=== PATIENT | female | born 1945 | race Caucasian/White ===

== ENCOUNTER 2020-10-16 06:29 | Day surgery (SDC) | payer OTHER, BC, SELFPAY ==
[~2020-10-16] VITALS: Ht 162.6 cm; Wt 79.4 kg
[2020-10-16] MEDS ORDERED: CLINDAMYCIN 600 mg/50mL D5W 50 ML IV ONE (07:00)
[2020-10-16] MEDS ORDERED: POLYMYXIN 500,000/BACIT.10,000 UNITS in NS IRR 1 L IR ONE (08:09)
[2020-10-16] MEDS ORDERED: LR 1,000 ML IV.SOLN IV ONE (09:07)
[2020-10-16] MEDS ORDERED: DESFLURANE 15 MIN GAS INH ONE (09:07)
[2020-10-16] MEDS ORDERED: fentaNYL CITRATE/PF 100 MCG/2 ML AMP IVP ONE (09:07)
[2020-10-16] MEDS ORDERED: BUPIVACAINE /PF 0.25% 30 ML VIAL INJ ONE (09:07)
[2020-10-16] MEDS ORDERED: ONDANSETRON HCL 4 MG/2 ML VIAL IVP ONE (09:07)
[2020-10-16] MEDS ORDERED: DEXAMETHASONE SOD PHOSPHATE 4 MG/ML VIAL IVP ONE (09:07)
[2020-10-16] MEDS ORDERED: KETOROLAC TROMETHAMINE 30 MG VIAL IVP ONE (09:07)
[2020-10-16] MEDS ORDERED: PROPOFOL 200MG/ 20ML VIAL (DIPRIVAN) IV ONE (09:07)
[2020-10-16] MEDS ORDERED: METOCLOPRAMIDE HCL 10 MG/2 ML VIAL IVP ONE (09:07)
[2020-10-16] MEDS ORDERED: HYDROmorphone 1 MG INJ. 1 MG/ML AMPUL IVP PRN ×3 (09:45→10:45)
[2020-10-16] MEDS ORDERED: ONDANSETRON HCL 4 MG/2 ML VIAL IVP PRN (09:45)
[2020-10-16] MEDS ORDERED: HYDROcodone/ACETAMIN 5-325 MG TAB (NORCO/ VICODIN) PO PRN ×2 (10:45)
[2020-10-16] MEDS ORDERED: D5/0.45 NS 1,000 ML IV SCH (10:45)
[2020-10-16] MEDS ORDERED: HYDROmorphone 2 MG/ML VIAL ONE (10:54)
[2020-10-16] MEDS ORDERED: HYDROcodone/ACETAMIN 5-325 MG TAB (NORCO/ VICODIN) ONE (12:30)
[2020-10-16 13:46] VITALS: BP_SYST 130
== END 2020-10-16 13:20 | disposition home or self-care (01) ==
LOC: SDS 06:29 → SMU 06:35 → EDSTATUS 10:40 → SDS 13:20
PROVIDERS: ATTEND Colon & Rectal Surgery
DX: C50.912 Malignant neoplasm of unspecified site of left female breast (principal); K21.9 Gastro-esophageal reflux disease without esophagitis; E11.51 Type 2 diabetes mellitus with diabetic peripheral angiopathy without gangrene; F17.210 Nicotine dependence, cigarettes, uncomplicated; Z88.0 Allergy status to penicillin; Z88.2 Allergy status to sulfonamides; Z98.890 Other specified postprocedural states; Z79.899 Other long term (current) drug therapy
CPT/HCPCS: 19301; 38525; 78195; 88305; 88307; 88333; A9541; J1100; J1170; J1885; J2405; J2704; J2765; J3010; J3490 ×2; J7120; U0003